=== PATIENT | male | born 1955 | race Caucasian/White ===

== ENCOUNTER 2018-06-02 15:39 | Emergency (ER) | payer MEDICARE, OTHER ==
[~2018-06-02] VITALS: Ht 172.7 cm; Wt 81.6 kg
[2018-06-02 17:11] LABS: Albumin 3.9 g/dL (3.4-5.0); Anion Gap 13 (5-15); Blood Urea Nitrogen 15 mg/dL (7-18); Calcium 9.4 mg/dL (8.5-10.1); Carbon Dioxide 22 mmol/L (21-32); Chloride 105 mmol/L (98-107); Glucose 113 mg/dL (74-106); Potassium 3.4 mmol/L (3.5-5.1); Sodium 140 mmol/L (136-145)
[2018-06-02 17:13] LABS: Alanine Aminotransferase 28 U/L (16-61); Aspartate Aminotransferase 21 U/L (15-37); BUN/Creatinine Ratio 16.7; Basophils # (auto) 0.1 uL; Basophils % (auto) 0.6 % (0.0-2.0); Blood Alcohol < 3.0 mg/dL (0-5); Eosinophils # (auto) 0 uL; Eosinophils % (auto) 0.2 % (0.0-7.0); GFR African American 109 mL/min; GFR Non-African American 90 mL/min; Hematocrit 47.1 % (41.0-53.0); Hemoglobin 16.1 g/dL (13.5-17.5); Lymphocytes # (auto) 1.2 uL; Lymphocytes % (auto) 10.5 % (10.0-50.0); Mean Corpuscular Hemoglobin 32.3 pg (28.0-32.0); Mean Corpuscular Hgb Conc. 34.2 g/dL (32.0-36.0); Mean Corpuscular Volume 94.6 fL (80.0-100.0); Monocytes # (auto) 1.1 uL; Monocytes % (auto) 9.8 % (0.0-12.0); Neutrophils # (auto) 8.8 uL; Neutrophils % (auto) 78.9 % (37.0-80.0); Nucleated Red Blood Cells % 0.1 %; Platelet Count (auto) 317 10^3/uL (140-450); Red Blood Cells 4.98 10^6/uL (4.5-5.90); Red Cell Distribution Width 13.9 % (11.8-14.3); White Blood Cell 11.2 10^3/uL (4.4-10.8)
[2018-06-02 17:16] LABS: Alkaline Phosphatase 50 U/L (45-117); Bilirubin, Total 0.8 mg/dL (0.2-1.0); Total Protein 6.9 g/dL (6.4-8.2)
[2018-06-02] MEDS ORDERED: SODIUM CHLORIDE 0.9% 1,000 ML IVB ONE (17:16)
[2018-06-02 18:23] LABS: Acetaminophen < 2.0 ug/mL (10-30); Salicylate < 1.7 mg/dL (2.8-20.0)
[2018-06-02 22:34] VITALS: BP 146/115
== END 2018-06-02 19:50 | disposition short-term general hospital (02) ==
LOC: ER 15:39 → EDBD 15:39 → ER 19:50
DX: F23 Brief psychotic disorder (principal); R41.82 Altered mental status, unspecified; F12.10 Cannabis abuse, uncomplicated; I10 Essential (primary) hypertension; E11.9 Type 2 diabetes mellitus without complications; J44.9 Chronic obstructive pulmonary disease, unspecified; F41.9 Anxiety disorder, unspecified; Z87.891 Personal history of nicotine dependence
CPT/HCPCS: 36415; 70450; 71045; 80053; 80320; 80329; 82962; 83735; 84484; 85025; 93005; 94761; 96360; 96361; 99285; J7030

== ENCOUNTER 2019-05-07 13:10 | Emergency (ER) | payer OTHER ==
[~2019-05-07] VITALS: Ht 172.7 cm; Wt 71.2 kg
[2019-05-07 14:27] LABS: Basophils # (auto) 0.1 uL; Eosinophils # (auto) 0.1 uL; Lymphocytes # (auto) 1.2 uL; Lymphocytes % (auto) 20.6 % (10.0-50.0); Monocytes # (auto) 0.7 uL
[2019-05-07 14:28] LABS: Basophils % (auto) 2.3 % (0.0-2.0); Eosinophils % (auto) 2.2 % (0.0-7.0); Hematocrit 40.2 % (41.0-53.0); Hemoglobin 13.1 g/dL (13.5-17.5); Mean Corpuscular Hemoglobin 25.2 pg (28.0-32.0); Mean Corpuscular Hgb Conc. 32.5 g/dL (32.0-36.0); Mean Corpuscular Volume 77.5 fL (80.0-100.0); Monocytes % (auto) 12.3 % (0.0-12.0); Neutrophils # (auto) 3.7 uL; Neutrophils % (auto) 62.6 % (37.0-80.0); Nucleated Red Blood Cells % 0.1 %; Platelet Count (auto) 285 10^3/uL (140-450); Red Blood Cells 5.19 10^6/uL (4.5-5.90)
[2019-05-07] MEDS ORDERED: methylPREDNISolone SOD SUCC 125 MG/2 ML VL IV ONE (14:30)
[2019-05-07] MEDS ORDERED: ALBUTEROL SULF 2.5 MG/0.5ML(0.5%) NEB SOLN NEB ONE (14:30)
[2019-05-07] MEDS ORDERED: IPRATROPIUM BROM 0.5 MG/2.5ML INH SOL NEB ONE (14:30)
[2019-05-07 14:32] LABS: Albumin 3.7 g/dL (3.4-5.0); Anion Gap 10 (5-15); Blood Urea Nitrogen 13 mg/dL (7-18); Calcium 8.7 mg/dL (8.5-10.1); Carbon Dioxide 23 mmol/L (21-32); Chloride 109 mmol/L (98-107); Glucose 89 mg/dL (74-106); Potassium 3.1 mmol/L (3.5-5.1); Sodium 142 mmol/L (136-145)
[2019-05-07 14:34] LABS: Red Cell Distribution Width 21.2 % (11.8-14.3)
[2019-05-07 14:38] LABS: Alanine Aminotransferase 23 U/L (16-61); Alkaline Phosphatase 49 U/L (45-117); Aspartate Aminotransferase 19 U/L (15-37); BUN/Creatinine Ratio 18.1; Bilirubin, Total 0.5 mg/dL (0.2-1.0); GFR African American 141 mL/min; GFR Non-African American 116 mL/min; Total Protein 7.1 g/dL (6.4-8.2)
[2019-05-07 16:01] VITALS: BP 147/99
[2019-05-07 16:11] LABS: Urine WBC None Seen /hpf (0 - 3)
[2019-05-07 16:30] LABS: Urine Bacteria NONE SEEN /hpf (None Seen); Urine Blood Negative /uL (Negative); Urine Specific Gravity 1.008 (1.001-1.035)
[2019-05-07] MEDS ORDERED: POTASSIUM EFFERVESENT TAB 25 MEQ PO ONE (17:00)
== END 2019-05-07 17:49 | disposition home or self-care (01) ==
LOC: EDBD 13:10 → ER 13:10 → EDUNIT# 13:10 → ER 17:49
DX: J44.9 Chronic obstructive pulmonary disease, unspecified (principal); I10 Essential (primary) hypertension; F17.210 Nicotine dependence, cigarettes, uncomplicated; F12.90 Cannabis use, unspecified, uncomplicated
CPT/HCPCS: 36415; 71045; 80053; 81001; 83880; 84484; 85025; 93005; 94640; 96374; 99284; J2930; J7611; J7644